=== PATIENT | male | born 1960 | race Two or more races ===

== ENCOUNTER → 2017-03-27 | Outpatient (CLI) | payer OTHER ==
--- NOTE | ~2017-03-27 | CR63 ---
[facility] A Service of [facility] & [facility] RADIOLOGY TEXT RESULTS PATIENT: BARRIE BEAR LOCATION: [facility] : 60 UNIT #: [id number] AGE: [address]: TAYLOR PAULSON APRN SEX: M ORDER DR: [id number] [facility] [address] [place], [place] [address] [id number] MR#: [id number] Acc #: [id number] NAME: BARRIE BEAR : 1960 SEX: M STUDY DATE/TIME: 03/27/2017 11:56 UNIT: [facility] ROOM: STUDY DESCRIPTION: CR Chest 2 View Attending Physician: Taylor Paulson A.P.R.N. Referring Physician: Taylor Paulson A.P.R.N. Ordering Physician: Taylor Paulson A.P.R.N. Primary Care Physician: Scott Tejeda M.D. MEDICAL IMAGING REPORT This report is preliminary unless electronic signature is present EXAM Chest 2 views 03/27/2017 1156 hours HISTORY 2-month history of cough and shortness of air. COMPARISON None. FINDINGS Upright PA and lateral views of the chest demonstrate low lung volumes. Heart size is within normal limits. There is a mildly tortuous aorta. The lungs are clear and there are no effusions. IMPRESSION Low lung volumes. No acute cardiopulmonary findings. Dictated by... Lina Pires M.D. THIS IS AN ELECTRONICALLY VERIFIED REPORT Lina Pires M.D. at 03/27/2017 8:09 PM VIVIEN/[place] TD: 03/27/2017 15:53 JOB #: [id number] MEDICAL IMAGING REPORT Page 1 of 1 COPY
== END | disposition home or self-care (01) ==
LOC: CRAD 11:29
DX: J20.9 Acute bronchitis, unspecified (principal); R91.8 Other nonspecific abnormal finding of lung field
CPT/HCPCS: 71020